=== PATIENT | female | born 1995 | race Caucasian/White ===

== ENCOUNTER 2019-07-10 18:02 | Emergency (ER) | payer BC ==
[~2019-07-10] VITALS: Ht 175.3 cm; Wt 69.5 kg
[2019-07-10 18:32] VITALS: BP 163/96; TEMP 98.5
[2019-07-10 22:16] VITALS: PULSE 94
== END 2019-07-10 22:13 | disposition home or self-care (01) ==
LOC: COL.ER 18:02
DX: S52.122A Displaced fracture of head of left radius, initial encounter for closed fracture (principal); W18.39XA Other fall on same level, initial encounter